=== PATIENT | male | born 1960 | race African-American/Black ===

== ENCOUNTER 2016-11-25 23:35 | Emergency (ER) | payer OTHER ==
[~2016-11-25] VITALS: Ht 185.4 cm; Wt 100.0 kg
[~2016-11-25 23:35] MED LIST: APPLTAB PO; ASPI1TAB69 PO; LISI-515 PO
[2016-11-25 23:36] VITALS: BP 204/122; PULSE 97; RESP 18; TEMP 97.6; O2SAT 95
[2016-11-26] VITALS: BP 172/103; PULSE 84; RESP 18; O2SAT 97
--- NOTE | 2016-11-26 00:26 | RADRPT ---
EXAM DATE/TIME: 11/26/2016 00:18 [facility] COMPARISON: No previous studies available for comparison. INDICATIONS : Cough MEDICAL HISTORY : None. SURGICAL HISTORY : None. ENCOUNTER: Initial ACUITY: 1 day PAIN SCORE: 2/10 LOCATION: Bilateral chest FINDINGS: There is hyperinflation of both lungs with attenuated lung markings. Heart size upper limits normal. Aorta is tortuous. There is increased density convex to the right lung right mediastinal border which is suspect for dilatation of the ascending aorta. Adenopathy is felt less likely but not entirely ex cluded. CONCLUSION: Findings suspect for aneurysmal dilatation of the ascending aorta which can be further evaluated with CT chest with contrast. Lungs are clear. Renny Macias MD on November 26, 2016 at 0:24 Board Certified Radiologist. This report was verified electronically.
--- NOTE | 2016-11-26 00:47 | PD ---
HPI Chief Complaint: Hypertension Time Seen by Provider: 00:28 Travel History International Travel<30 days: No Contact w/Intl Traveler<30days: No Traveled to known affect area: No History of Present Illness HPI 56-year-old male complains of coughing congestion and elevated blood pressure. Patient has history hypertension and has been taking lisinopril 20 mg twice a day. Patient has been taking dictation as directed. Patient states that his blood pressures has been elevated today, in the 200s range today at home. Patient denies any headache. Patient denies any chest pain or shortness of breath. Patient denies abdominal pain. Patient denies any visual change. Patient denies any focal weakness or numbness of the extremity. Patient has coughing congestion for the past month. Patient has been taking over-the- counter medication for that. PFSH Past Medical History Cardiovascular Problems: Yes (HTN) Hypertension: Yes Past Surgical History Surgical History: No Previous Surgery Social History Alcohol Use: No Tobacco Use: No Substance Use: No Allergies-Medications (Allergen,Severity, Reaction): Coded Allergies: No Known Allergies (Unverified , 11/25/16) Reported Meds & Prescriptions Reported Meds & Active Scripts Active Lisinopril 20 Mg Tab 20 Mg PO BID Reported Apple Cider Vinegar Diet (real5D Natural Products) 1 Tab Tab 1 Tab PO DAILY Aspirin 81 Mg Tabdr 81 Mg PO DAILY Lisinopril 20 Mg Tab 20 Mg PO DAILY Review of Systems General / Constitutional: No: Fever Eyes: No: Visual changes HENT: Positive: Congestion, No: Headaches Cardiovascular: No: Chest Pain or Discomfort Respiratory: Positive: Cough, No: Shortness of Breath Gastrointestinal: No: Abdominal Pain Genitourinary: No: Dysuria Musculoskeletal: No: Pain Skin: No Rash Neurologic: No: Weakness Psychiatric: No: Depression Endocrine: No: Polydipsia Hematologic/Lymphatic: No: Easy Bruising Physical Exam Narrative GENERAL: Well-nourished, well-developed patient. SKIN: Warm and dry. HEAD: Normocephalic. EYES: No scleral icterus. No injection or drainage. NECK: Supple, trachea midline. No JVD or lymphadenopathy. CARDIOVASCULAR: Regular rate and rhythm without murmurs, gallops, or rubs. RESPIRATORY: Breath sounds equal bilaterally. No accessory muscle use. GASTROINTESTINAL: Abdomen soft, non-tender, nondistended. MUSCULOSKELETAL: No cyanosis, or edema. BACK: Nontender without obvious deformity. No CVA tenderness. Neurologic exam normal. Data Data Last Documented VS Vital Signs Date Time Temp Pulse Resp B/P Pulse Ox O2 Delivery O2 Flow Rate FiO2 11/26/16 02:00 80 22 159/102 96 Room Air 11/25/16 23:36 97.6 Orders Chest, Single Ap (11/25/16 ) Complete Blood Count With Diff (11/26/16 00:43) Basic Metabolic Panel (Bmp) (11/26/16 00:43) Prothrombin Time / Inr (Pt) (11/26/16 00:43) Act Partial Throm Time (Ptt) (11/26/16 00:43) Iv Access Insert/Monitor (11/26/16 00:43) Ecg Monitoring (11/26/16 00:43) Oximetry (11/26/16 00:43) Cta Chest W Iv Contrast W 3d (11/26/16 00:43) Iohexol 350 Inj (Omnipaque 350 Inj) (11/26/16 02:24) Labs Laboratory Tests Test 11/26/16 00:55 White Blood Count 9.9 TH/MM3 Red Blood Count 5.44 MIL/MM3 Hemoglobin 14.5 GM/DL Hematocrit 43.9 % Mean Corpuscular Volume 80.7 FL Mean Corpuscular Hemoglobin 26.6 PG Mean Corpuscular Hemoglobin 33.0 % Concent Red Cell Distribution Width 15.9 % Platelet Count 441 TH/MM3 Mean Platelet Volume 7.7 FL Neutrophils (%) (Auto) 52.4 % Lymphocytes (%) (Auto) 27.9 % Monocytes (%) (Auto) 10.5 % Eosinophils (%) (Auto) 8.1 % Basophils (%) (Auto) 1.1 % Neutrophils # (Auto) 5.2 TH/MM3 Lymphocytes # (Auto) 2.8 TH/MM3 Monocytes # (Auto) 1.0 TH/MM3 Eosinophils # (Auto) 0.8 TH/MM3 Basophils # (Auto) 0.1 TH/MM3 CBC Comment DIFF FINAL Differential Comment Prothrombin Time 11.4 SEC Prothromb Time International 1.0 RATIO Ratio Activated Partial 25.9 SEC Thromboplast Time Sodium Level 142 MEQ/L Potassium Level 4.0 MEQ/L Chloride Level 107 MEQ/L Carbon Dioxide Level 26.2 MEQ/L Anion Gap 9 MEQ/L Blood Urea Nitrogen 20 MG/DL Creatinine 1.24 MG/DL Estimat Glomerular Filtration 73 ML/MIN Rate Random Glucose 103 MG/DL Calcium Level 8.9 MG/DL MDM Medical Decision Making Medical Screen Exam Complete: Yes Emergency Medical Condition: Yes Interpretation(s) 3:[address] scan of the chest with IV contrast shows ascending aortic aneurysm measuring 4.9 x 4.8 cm. Renal cyst. Severe emphysema and left lower lobe pulmonary nodule. CBC within normal limit. BMP within normal limit. BUN 20. Differential Diagnosis Differential diagnosis including URI, bronchitis, pneumonia, uncontrolled hypertension, hypertensive emergency, hypertensive crisis. Narrative Course 56-year-old male with coughing congestion for the past month and elevated blood pressure today. History of hypertension. Diagnosis Primary Impression: Uncontrolled hypertension Additional Impressions: Bronchitis Thoracic aortic aneurysm Qualified Code: I71.2 - Thoracic aortic aneurysm without rupture Lung nodule Patient Instructions: General Instructions Additional Instructions: Continue with blood pressure medication. Z-Alejandro as directed. Follow-up with personal physician for aortic aneurysm and lung nodule. Med/Other Pt SpecificInfo: Prescription(s) given Scripts Azithromycin (Zithromax Z-Alejandro)250 Mg [id number] Mg PO DIRECTED #1 DSPK 500 MG (2 tabs) day 1, then 1 tab days 2-5. Prov:James Vaz MD 11/26/16 Disposition: 01 DISCHARGE HOME Condition: Stable James Vaz MD Nov 26, 2016 00:47
[2016-11-26 01:00] VITALS: BP 172/94; PULSE 84; RESP 17; O2SAT 98
[2016-11-26 01:19] LABS: AUTOMATED NEUTROPHIL # 5.2 TH/MM3 (1.8-7.7); BASOPHIL # 0.1 TH/MM3 (0-0.2); BASOPHIL % 1.1 % (0.0-2.0); EOSINOPHIL # 0.8 TH/MM3 (0-0.4); EOSINOPHIL % 8.1 % (0.0-4.0); HEMATOCRIT 43.9 % (39.0-51.0); HEMO FLAGS DIFF FINAL; LYMPH % 27.9 % (9.0-44.0); LYMPHOCYTE # 2.8 TH/MM3 (1.0-4.8); MEAN CELL VOLUME 80.7 FL (80.0-100.0); MEAN CORPUSCULAR HEMOGLOBIN 26.6 PG (27.0-34.0); MONO % 10.5 % (0.0-8.0); NEUT % 52.4 % (16.0-70.0); PLATELET COUNT 441 TH/MM3 (150-450); RED BLOOD COUNT 5.44 MIL/MM3 (4.50-5.90); RED CELL DISTRIBUTION WIDTH 15.9 % (11.6-17.2); WHITE BLOOD COUNT 9.9 TH/MM3 (4.0-11.0)
[2016-11-26 01:29] LABS: APTT (PATIENT) 25.9 SEC (24.3-30.1); PROTHROMBIN TIME - PATIENT 11.4 SEC (9.8-11.6)
[2016-11-26 01:42] LABS: BICARBONATE 26.2 MEQ/L (21.0-32.0)
[2016-11-26 02:00] VITALS: BP 159/102; PULSE 80; RESP 22; O2SAT 96
[2016-11-26] MEDS ORDERED: IOHEXOL 350 MG/ML 10 ML VIAL (for RAD DIAG) IV ONE (02:24)
--- NOTE | 2016-11-26 03:07 | RADRPT ---
EXAM DATE/TIME: 11/26/2016 02:14 [facility] COMPARISON: No previous studies available for comparison. INDICATIONS : Elevated blood pressure x2 days. Abnormal chest x-ray. IV CONTRAST: 80 cc Omnipaque 350 (iohexol) IV RADIATION DOSE: 13.16 CTDIvol (mGy) MEDICAL HISTORY : Hypertension. SURGICAL HISTORY : None. ENCOUNTER: Initial ACUITY: 2 days PAIN SCALE: 0/10 LOCATION: chest TECHNIQUE: Volumetric scanning of the chest was performed using a pulmonary embolism protocol MIP images were re constructed. Using automated exposure control and adjustment of the mA and/or kV according to patien t size, radiation dose was kept as low as reasonably achievable to obtain optimal diagnostic quality images. FINDINGS: PULMONARY ARTERIES: No filling defects are seen in the pulmonary arteries through the segmental level. LUNGS: Severe emphysematous changes are noted bilaterally. There is mild bronchiectasis in the lower lobes. A pleural based nodule left lower lobe abutting the oblique fissure measuring 9.1 mm x 4.2 mm is iden tified. There is linear scarring versus atelectasis in the lateral segment right middle lobe. PLEURAE: There is no pleural thickening or pleural effusion. MEDIASTINUM: There is good visualization of the great vessels of the middle mediastinum. No evidence of mediastin al or hilar adenopathy/mass. There is aneurysmal dilatation of the ascending aorta up to 4.9 x 4.8 cm in AP and transverse dimension on axial image 68. MUSCULOSKELETAL: Within normal limits for patient age. MISCELLANEOUS: 2.4 cm left midpole renal cyst 3 cm left lower pole renal cyst. Subcentimeter cortical cysts are also present. CONCLUSION: 1. Ascending aortic aneurysm. 2. Renal cysts. 3. Severe emphysema and left lower lobe pulmonary nodule. Renny Macias MD on November 26, 2016 at 3:02 Board Certified Radiologist. This report was verified electronically.
[2016-11-26] MEDS ORDERED: ZITHTAB PO (03:27)
[2016-11-26 04:16] VITALS: BP 144/97; PULSE 67; RESP 20; O2SAT 95
[2016-11-30] MEDS ORDERED: AMLO10TA2 PO (09:42)
[2016-11-30] MEDS ORDERED: CLON.1 PO (09:47)
[2017-01-29] MEDS ORDERED: AMLO10TA2 PO (11:29)
[2017-02-27] MEDS ORDERED: AMLO10TA2 PO (10:19)
== END 2016-11-26 04:21 | disposition home or self-care (01) ==
LOC: NEPE 23:35
DX: I10 Essential (primary) hypertension (principal); J40 Bronchitis, not specified as acute or chronic; I71.2 Thoracic aortic aneurysm, without rupture
CPT/HCPCS: 71010; 71275; 80048; 85025; 85610; 85730; 99284; Q9967

== ENCOUNTER → 2017-04-04 | Outpatient (CLI) | payer OTHER ==
[~2017-04-04] MED LIST changes: +AMLO10TA2 PO
[2017-04-04 10:53] LABS: HDL CHOLESTEROL 48.6 MG/DL (40.0-60.0)
== END ==
LOC: CLAB 09:55
PROVIDERS: ATTEND Family Medicine
DX: E78.5 Hyperlipidemia, unspecified (principal)
CPT/HCPCS: 36415; 80061

== ENCOUNTER → 2017-05-07 | Outpatient (CLI) | payer OTHER ==
[~2017-05-07] MED LIST changes: +APPL300T2 PO; +ASPI-110 PO
[2017-05-07 16:49] LABS: HEMOGLOBIN A1a 1.4 %; HEMOGLOBIN Ao 82.8 %; HEMOGLOBIN F 2.1 %; HEMOGLOBIN P3 3.7 %
== END ==
LOC: CLAB 12:09
PROVIDERS: ATTEND Family Medicine
DX: E78.5 Hyperlipidemia, unspecified (principal)
CPT/HCPCS: 36415; 83036